=== PATIENT | female | born 1950 | race Caucasian/White ===

== ENCOUNTER → 2017-07-03 | Day surgery (SDC) | payer MEDICARE, OTHER ==
[~2017-07-03] VITALS: Ht 167.6 cm; Wt 85.7 kg
[~2017-07-03] MED LIST: 0.9% Sodium Chloride 1,000 ML IV PRN; ALEN35TA3 PO; ASPI81TA2 PO; CALC-146 PO; DOCU240C41 PO; FOLI-51 PO; OMEP20CA11 PO; Sodium Chloride LOK Flush 10 mL Syringe IV PRN; ZOC10 PO; fentaNYL-PF 50 mCg/mL 2 mL Inj IVPUSH PRN
[2017-07-03 10:42] VITALS: BP 142/88; PULSE 72; RESP 14; O2SAT 98
[2017-07-03 11:42] VITALS: BP 116/76; PULSE 65; RESP 14; O2SAT 99
[2017-07-03 11:52] VITALS: BP 116/67; PULSE 60; RESP 14; O2SAT 100
[2017-07-03 12:07] VITALS: BP 121/62; PULSE 58; RESP 14; O2SAT 100
[2017-07-03 12:13] VITALS: BP 119/72; PULSE 63; RESP 14; O2SAT 100
--- NOTE | 2017-07-03 13:21 | ENDO ---
[address] [address] ENDOSCOPY PROCEDURE PATIENT: ELEANOR YBARRA : 1950 MR#: [id number] ADMIT: 07/03/2017 JOB ID: [id number] DATE: 07/03/2017 PRIMARY PROVIDER: Sparkle Chaney M.D. PROCEDURE: Colonoscopy with hot snare polypectomy and cold snare polypectomy. INDICATIONS: A 67-year-old female with a personal history of colon polyps returning for surveillance. EQUIPMENT: PCF H 180 AL. SEDATION: 1. 5 mg Versed. 2. 100 mcg fentanyl. COMPLICATIONS: None identified. BOWEL PREPARATION: Fair, adequate examination. PROCEDURAL INFORMATION: After the risks and benefits were explained, written and verbal informed consent was obtained. The patient was brought into the endoscopy suite and placed into the left lateral decubitus position. Sedation was achieved as above. Digital rectal examination disclosed a small perhaps 15 mm lipoma in the region of the left buttocks. The patient had external and internal nonbleeding nonthrombosed hemorrhoids. The scope was introduced into the rectum and advanced to the cecum as identified by the appendiceal orifice and ileocecal valve. The scope was slowly withdrawn to carefully examine the mucosa for any defects or lesions. Retroflexed views were accomplished in the rectum. The colon was decompressed. The scope removed from the patient who tolerated the procedure well. FINDINGS: The patient had diverticulosis in both the right and left colon. There were three polyps seen and removed today. All of these were quite small. A couple of them we used the hot snare and the smallest we used the cold snare. These were submitted as "colon polyps." Retroflexed views from within the rectum disclosed some internal hemorrhoids. On direct views through the dentate line, these appeared to be inflamed consistent with regular intermittent rectal/hemorrhoidal prolapse. ENDOSCOPIC DIAGNOSES: 1. Inflamed engorged internal hemorrhoids-suspect intermittent prolapse related inflammation. 2. Pandiverticulosis. 3. Colon polyps. RECOMMENDATIONS: 1. Await histopathology. 2. Repeat colonoscopy will likely be suggested for 3-5 years depending on the number returned adenomatous. 3. A two week course of Anusol HC would be recommended and then a repeat flexible sigmoidoscopy to ensure mucosal healing. Would additionally recommend intermittent warm Epsom salt baths.
--- NOTE | 2017-07-05 11:55 | PATH ---
SURGICAL PATHOLOGY Attending Physician:Kylah Monet CASE STATUS: Signed Out PATIENT NAME: ELEANOR YBARRA PID: [id number] : 1950 DATE COLLECTED:07/03/2017 19:03 SPECIMEN: Colon, Polyp CLINICAL HISTORY: 1). COLON POLYPS X 3 FINAL DIAGNOSIS: Colon, Polyps x3, Biopsies: Tubular adenoma in one of three fragments. Serrated lesion, favor sessile serrated adenoma in one fragment. One fragment with superficial hyperplastic-type changes. ICD10: D12.6 GROSS DESCRIPTION: The specimen is received in one formalin filled container labeled with the patient's name, sublabeled "colon polyps X3" and consists of 3 portions of tissue which aggregate to 0.3 x 0.3 x 0.2 CM. The specimen is entirely submitted in one cassette. 07/03/2017DC ICD-9 CODES: CPT CODES: 1: 81361 Electronically Signed Out Katey Pedroza MD [facility] [address], [place] [address] Technical component performed at [facility], [facility] [address], [address]
== END | disposition home or self-care (01) ==
LOC: END 00:21
PROVIDERS: ATTEND Internal Medicine Gastroenterology
DX: Z12.11 Encounter for screening for malignant neoplasm of colon (principal); Z86.010 Personal history of colon polyps; D12.6 Benign neoplasm of colon, unspecified; K57.30 Diverticulosis of large intestine without perforation or abscess without bleeding; K64.8 Other hemorrhoids; Z79.82 Long term (current) use of aspirin
CPT/HCPCS: 45385; 99153; G0500; J2250; J3010; J7030